=== PATIENT | female | born 1940 | race Caucasian/White ===

== ENCOUNTER 2016-12-17 11:33 | Emergency (ER) | payer MEDICARE, BC ==
[~2016-12-17] VITALS: Ht 160 cm; Wt 73.5 kg
[~2016-12-17 11:33] MED LIST changes: -IOHEXOL 300 MG/ML 75 ML VIAL. IV ONE
[2016-12-17] MEDS ORDERED: 0.9 % SODIUM CHLORIDE 10 ML DISP.SYRIN. IV ONE (12:00)
[2016-12-17 12:01] LABS: BASO # 0.1 x10^3/uL (0.0-0.2); BASO % 1 % (0-3); EOS # 0.1 x10^3/uL (0.0-0.7); EOS % 1 % (0-3); HEMATOCRIT 45.9 % (36.0-47.0); HEMOGLOBIN 15.4 g/dL (12.0-15.5); LYMPH # 1.4 x10^3/uL (1.0-4.8); LYMPH % 14 % (24-48); MEAN CORPUSCULAR HEMOGLOBIN 29 pg (25-35); MEAN CORPUSCULAR HGB CONC 34 g/dL (31-37); MEAN CORPUSCULAR VOLUME 85 fL (79-100); MONO # 0.6 x10^3/uL (0.0-1.1); MONO % 6 % (0-9); NEUT # 7.6 x10^3uL (1.8-7.7); NEUT % 78 % (31-73); PLATELET COUNT 250 x10^3/uL (140-400); RED BLOOD COUNT 5.41 x10^6/uL (3.50-5.40); RED CELL DISTRIBUTION WIDTH 14.5 % (11.5-14.5); WHITE BLOOD COUNT 9.7 x10^3/uL (4.0-11.0)
[2016-12-17 12:18] LABS: INFLUENZA A PATIENT NEGATIVE (NEGATIVE); INFLUENZA B PATIENT NEGATIVE (NEGATIVE)
[2016-12-17] MEDS ORDERED: HEPARIN 25,000UTS/500ML PREMIX 500 ML IV ONE ×2 (12:23→12:30)
--- NOTE | 2016-12-17 12:30 | PHYS DOC ---
General Chief Complaint: SHORTNESS OF BREATH Stated Complaint: SOA Time Seen by MD: 11:34 Source: patient, family Problems: History of Present Illness Initial Comments 75-year-old female patient complaining of fever and cough and congestion and productive cough for the last 10 days and states she was seen by her primary care physician and treated with Zithromax without improvement. Patient states the primary care physician ordered CT of chest that reported right atrium large clot with extension to inferior vena cava and sent to ER for evaluation. Patient denies chest pain, palpitation, focal neuro deficit, history of DVT and PE and recent extremity pain and tenderness. Allergies: Coded Allergies: Penicillins (Verified Allergy, Unknown, 12/17/16) codeine (Unverified Allergy, Unknown, 11/01/15) morphine (Unverified Allergy, Unknown, 11/01/15) Uncoded Allergies: AUGMINTIN (Allergy, Unknown, 11/01/15) CELECOR (Allergy, Unknown, 11/01/15) PENICILIN (Allergy, Unknown, 11/01/15) TRIGLICYRN (Allergy, Unknown, 11/01/15) Review of Systems Constitutional: see HPI EENTM: see HPI Respiratory: see HPI Cardiovascular: see HPI Gastrointestinal: see HPI Genitourinary: see HPI Musculoskeletal: see HPI Skin: see HPI Psychiatric/Neurological: see HPI Hematologic/Lymphatic: see HPI Immunological/Allergic: see HPI All Other Systems: Reviewed and Negative Physical Exam General Appearance: WD/WN, moderate distress Eyes: bilateral eye PERRL, bilateral eye normal inspection Ear, Nose, Throat: hearing grossly normal, normal ENT inspection, normal pharynx Neck: non-tender, full range of motion, supple Respiratory: chest non-tender, respiratory distress (mild), decreased breath sounds, accessory muscle use, wheezing Cardiovascular: normal peripheral pulses, regular rate, rhythm, no edema Gastrointestinal: normal bowel sounds, non tender, soft Back: normal inspection, no CVA tenderness, no vertebral tenderness Extremities: normal range of motion, non-tender, normal inspection, no pedal edema Neurologic/Psychiatric: no motor/sensory deficits, alert, normal mood/affect, oriented x 3 Skin: normal color, warm/dry Orders, Labs, Meds Evaluation of patient showed 75-year-old female patient presented because of the right atrial thrombosis. Cardiology rehabilitation services director at [facility] Dr Telles consulted at 1154 and recommended to send patient to [facility]. accepted the transfer to [facility] at 1216. Departure Departure: Disposition: 05 XFER OTHER (At 1216) Condition: GUARDED KURTIS OH MD Dec 17, 2016 12:30
[2016-12-17 12:33] LABS: ALBUMIN/GLOBULIN RATIO 1.3 (1.0-1.7); CALCIUM 9.6 mg/dL (8.5-10.1); GFR 54.2; POTASSIUM 3.8 mmol/L (3.5-5.1); TOTAL BILIRUBIN 0.6 mg/dL (0.2-1.0); TOTAL PROTEIN 7.2 g/dL (6.4-8.2)
[2016-12-17 12:42] VITALS: BP 180/77
--- NOTE | 2016-12-17 15:11 | EKG ---
[address] [address] Test Date: 2016-12-17 Test Time: 11:48:14 Pat Name: EMMA JER Department: Room: Gender: F Brancher: JER : 1940 Requested By: KURTIS OH Order Number: [id number] Reading MD: Measurements Intervals [place] Rate: 55 P: 45 [place]: 152 QRS: -7 QRSD: 78 T: 72 QT: 440 QTc: 423 Interpretive Statements SINUS RHYTHM LEFTWARD AXIS OTHERWISE NORMAL ECG RI6.01 Unconfirmed report No previous ECG available for comparison
== END 2016-12-17 12:57 | disposition short-term general hospital (02) ==
LOC: ER 11:33
DX: I51.3 Intracardiac thrombosis, not elsewhere classified (principal); Z88.0 Allergy status to penicillin; Z88.5 Allergy status to narcotic agent
CPT/HCPCS: 36415; 80053; 82553; 83880; 84484; 85027; 85379; 85610; 85730; 87040; 87804; 93005; 96365; 99285-25

== ENCOUNTER → 2016-12-17 | Outpatient (CLI) | payer MEDICARE, BC ==
[~2016-12-17] MED LIST: ALPR0.254 PO; FAMO10TA69 PO; GABA-585 PO; IOHEXOL 300 MG/ML 75 ML VIAL. IV ONE; LEVO25TA4 PO; SIMV5TAB5 PO
--- NOTE | 2016-12-17 11:35 | RAD ---
Examination: CT angiogram of the chest History: History of shortness of breath, coughing up blood Comparison: 23/06/2016 Technique: Axial CT angiographic images were performed with IV contrast. Coronal and sagittal 3-D MIP reformats are performed. PQRS Compliance Statement: One or more of the following individualized dose reduction techniques were utilized for this examination: 1. Automated exposure control 2. Adjustment of the mA and/or kV according to patient size 3. Use of iterative reconstruction technique Findings: The visualized thyroid gland grossly appears unremarkable. The central airways are patent. Mild cardiomegaly. No evidence of pleural effusion is identified There is no evidence of filling defect identified in the main pulmonary arterial trunk and right and left main pulmonary arteries and the visualized lobar, segmental branches of the pulmonary arteries There is a large filling defect identified in the right atrium extending likely extending into the inferior vena cava. Mild prominent appearing bilateral groundglass opacities identified in the lungs could be secondary to mild pulmonary edema or a patchy groundglass infiltrates The visualized liver, spleen, adrenals grossly appears unremarkable. Mild degenerative changes identified in the thoracic spine. Minimal superior endplate sclerosis identified at L1 vertebral level, nonspecific. Impression: 1.There is a large filling defect identified in the right atrium of the heart with possible extension into the inferior vena cava, suspicious for thrombus recommend echocardiogram and ultrasound of the bilateral lower extremities and the iliac veins and IVC for further evaluation. Other possibility includes flow mixing artifact. 2. No evidence of central pulmonary embolism. 3. Mild patchy diffuse groundglass airspace opacity identified in the bilateral lungs likely could be mild pulmonary edema or patchy glass infiltrates. Follow-up to resolution. Report will be called to ordering physician's office by the surgical technologist time of dictation.
== END | disposition home or self-care (01) ==
LOC: CT 10:49
PROVIDERS: ATTEND Nurse Practitioner Adult Health
DX: R06.02 Shortness of breath (principal); I10 Essential (primary) hypertension; Z86.69 Personal history of other diseases of the nervous system and sense organs; R05 Cough
CPT/HCPCS: 71275; Q9967

== ENCOUNTER → 2017-01-08 | Outpatient (CLI) | payer MEDICARE, BC ==
[2016-12-17 12:42] VITALS: BP 180/77
[2017-01-08 11:28] LABS: BASO # 0.1 x10^3/uL (0.0-0.2); BASO % 1 % (0-3); EOS # 0.3 x10^3/uL (0.0-0.7); EOS % 4 % (0-3); HEMATOCRIT 42.5 % (36.0-47.0); LYMPH # 1.5 x10^3/uL (1.0-4.8); LYMPH % 25 % (24-48); MEAN CORPUSCULAR HEMOGLOBIN 29 pg (25-35); MEAN CORPUSCULAR HGB CONC 33 g/dL (31-37); MEAN CORPUSCULAR VOLUME 87 fL (79-100); MONO # 0.4 x10^3/uL (0.0-1.1); MONO % 7 % (0-9); NEUT # 3.7 x10^3uL (1.8-7.7); NEUT % 62 % (31-73); PLATELET COUNT 209 x10^3/uL (140-400); RED BLOOD COUNT 4.87 x10^6/uL (3.50-5.40); RED CELL DISTRIBUTION WIDTH 15.9 % (11.5-14.5)
[2017-01-08 11:36] LABS: ALBUMIN 3.6 g/dL (3.4-5.0); ALBUMIN/GLOBULIN RATIO 1.2 (1.0-1.7); CALCIUM 9.6 mg/dL (8.5-10.1); CREATININE 1.1 mg/dL (0.6-1.0); GFR 48.4; POTASSIUM 4.6 mmol/L (3.5-5.1); TOTAL BILIRUBIN 0.5 mg/dL (0.2-1.0); TOTAL PROTEIN 6.7 g/dL (6.4-8.2)
--- NOTE | 2017-01-08 11:44 | RAD ---
Chest, 2 views, 01/08/2017: History: Persistent cough and shortness of breath The heart is at the upper limits of normal in size. There is calcific plaquing of the aorta. The pulmonary vascularity is normal. A calcified granuloma is present in the left lung. There is a minimal streaky opacity laterally in the left base. No pulmonary consolidation is seen. There is no evidence of pleural fluid. A left shoulder prosthesis is in place. IMPRESSION: 1. Borderline cardiomegaly and aortic atherosclerosis. 2. Minimal left basilar streaky atelectasis or scarring.
[2017-01-08 12:00] LABS: BGAS PH 7.42 (7.35-7.45)
== END | disposition home or self-care (01) ==
LOC: DXRAD 10:45
PROVIDERS: ATTEND Family Medicine
DX: I70.0 Atherosclerosis of aorta (principal); L90.5 Scar conditions and fibrosis of skin; J84.10 Pulmonary fibrosis, unspecified
CPT/HCPCS: 36415; 71020; 80053; 82803; 85027

== ENCOUNTER → 2017-03-16 | Outpatient (CLI) | payer MEDICARE, BC ==
--- NOTE | 2017-03-16 12:43 | RAD ---
CT scan of the head without contrast 03/16/2017 Clinical History: Left-sided headache for 5 days. Technique: Unenhanced, contiguous, 5 mm axial sections were obtained through the head. One or more of the following individualized dose reduction techniques were utilized for this study: 1. Automated exposure control. 2. Adjustment of the mA and/or kV according to patient size. 3. Use of iterative reconstruction technique. Findings: No previous studies are available for comparison. There is generalized parenchymal atrophy. Small scattered areas of decreased attenuation are seen within the periventricular and subcortical white matter of both cerebral hemispheres consistent with areas of small vessel ischemic disease. No acute parenchymal abnormality is seen. No extra-axial fluid collection is noted. No skull fracture is seen. Impression: No acute intracranial abnormality is seen.
== END | disposition home or self-care (01) ==
LOC: CT 12:04
PROVIDERS: ATTEND Physician Assistant
DX: R51 Headache (principal)
CPT/HCPCS: 70450

== ENCOUNTER 2017-03-17 11:59 | Emergency (ER) | payer MEDICARE, BC ==
[~2017-03-17] VITALS: Ht 160 cm; Wt 73.5 kg
[2017-03-17 12:43] LABS: BASO % 1 % (0-3); EOS # 0.1 x10^3/uL (0.0-0.7); EOS % 2 % (0-3); HEMATOCRIT 41.1 % (36.0-47.0); HEMOGLOBIN 14.1 g/dL (12.0-15.5); LYMPH # 1.5 x10^3/uL (1.0-4.8); LYMPH % 29 % (24-48); MEAN CORPUSCULAR HEMOGLOBIN 30 pg (25-35); MEAN CORPUSCULAR HGB CONC 34 g/dL (31-37); MEAN CORPUSCULAR VOLUME 86 fL (79-100); MONO # 0.4 x10^3/uL (0.0-1.1); MONO % 8 % (0-9); NEUT # 3.1 x10^3uL (1.8-7.7); NEUT % 60 % (31-73); PLATELET COUNT 211 x10^3/uL (140-400); RED BLOOD COUNT 4.76 x10^6/uL (3.50-5.40); WHITE BLOOD COUNT 5.2 x10^3/uL (4.0-11.0)
[2017-03-17 12:52] LABS: ALBUMIN 3.9 g/dL (3.4-5.0); ALBUMIN/GLOBULIN RATIO 1.3 (1.0-1.7); CALCIUM 9.4 mg/dL (8.5-10.1); CREATININE 0.8 mg/dL (0.6-1.0); GFR 69.9; POTASSIUM 5.1 mmol/L (3.5-5.1); TOTAL BILIRUBIN 0.8 mg/dL (0.2-1.0); TOTAL PROTEIN 6.9 g/dL (6.4-8.2)
--- NOTE | 2017-03-17 14:23 | EKG ---
[address] [address] Test Date: 2017-03-17 Test Time: 12:04:57 Pat Name: EMMA RANDLE Department: Room: Gender: F Colorman: GABRIEL : 1940 Requested By: MELINA IBRAHIM Order Number: [id number] Reading MD: Nba Telles Measurements Intervals [place] Rate: 48 P: 38 [place]: 154 QRS: -12 QRSD: 76 T: 26 QT: 434 QTc: 388 Interpretive Statements SINUS BRADYCARDIA Electronically Signed On 03-18-2017 11:07:01 CDT by Nba Telles
--- NOTE | 2017-03-17 14:54 | ED.ADGEN ---
Past History Past Medical History: CAD, High Cholesterol, Hypertension, Hypothyroid, Other Past Surgical History: Knee Replacement, Other Alcohol Use: None Drug Use: None Adult General Chief Complaint Chief Complaint Headache and chest pain HPI HPI Patient is a 76 year old female who presents with 5 day history of gradual onset headache it's mild to moderate posteriorly located no pain over the temples no blurry vision or difficulty speaking or swallowing no recent head trauma and I: Symptoms are worse with head movement with some elements of vertigo symptoms.. She's had 2 ED visits for evaluation of this problem with normal labs and CT head 2 that was negative. He was seen in the emergency department down the street prior to arrival here had a negative CT and labs when she got home she ended up having substernal chest discomfort on the left side did not radiate down the arm or neck mild to moderate in intensity lasted about 20 minutes and has since resolved now. She denies having chest pain workup within the last 10 years denies prior heart catheter and greater than 10 years of the stress test. Review of Systems Review of Systems Constitutional: Denies fever or chills [] Eyes: Denies change in visual acuity, redness, or eye pain [] HENT: Denies nasal congestion or sore throat [] Respiratory: Denies cough or shortness of breath [] Cardiovascular: No additional information not addressed in HPI [] GI: Denies abdominal pain, nausea, vomiting, bloody stools or diarrhea [] : Denies dysuria or hematuria [] Musculoskeletal: Denies back pain or joint pain [] Integument: Denies rash or skin lesions [] Neurologic: Denies headache, focal weakness or sensory changes [] Endocrine: Denies polyuria or polydipsia [] Allergies Allergies Allergies Coded Allergies Type Severity Reaction Last Updated Verified Penicillins Allergy Unknown 12/17/16 Yes codeine Allergy Unknown 11/01/15 No morphine Allergy Unknown 11/01/15 No Uncoded Allergies Type Severity Reaction Last Updated Verified AUGMINTIN Allergy Unknown 11/01/15 CELECOR Allergy Unknown 11/01/15 PENICILIN Allergy Unknown 11/01/15 TRIGLICYRN Allergy Unknown 11/01/15 Physical Exam Physical Exam Constitutional: Well developed, well nourished, no acute distress, non-toxic appearance. [] HENT: Normocephalic, atraumatic, bilateral external ears normal, oropharynx moist, no oral exudates, nose normal. [] Eyes: PERRLA, EOMI, conjunctiva normal, no discharge. No nystagmus [] Neck: Normal range of motion, no tenderness, supple, no stridor. [] Cardiovascular:Heart rate regular rhythm, no murmur [] Lungs & Thorax: Bilateral breath sounds clear to auscultation [] Abdomen: Bowel sounds normal, soft, no tenderness, no masses, no pulsatile masses. [] Skin: Warm, dry, no erythema, no rash. [] Back: No tenderness, no CVA tenderness. [] Extremities: No tenderness, no cyanosis, no clubbing, ROM intact, no edema. [] Neurologic: Alert and oriented X 3, normal motor function, normal sensory function, no focal deficits noted. [] Psychologic: Affect normal, judgement normal, mood normal. [] Current Patient Data Vital Signs Vital Signs Date Time Temp Pulse Resp B/P (MAP) Pulse Ox O2 Delivery O2 Flow Rate FiO2 03/17/17 12:00 97.6 45 20 97 Room Air Lab Results Laboratory Tests Test 03/17/17 12:15 White Blood Count 5.2 x10^3/uL (4.0-11.0) Red Blood Count 4.76 x10^6/uL (3.50-5.40) Hemoglobin 14.1 g/dL (12.0-15.5) Hematocrit 41.1 % (36.0-47.0) Mean Corpuscular Volume 86 fL (79-100) Mean Corpuscular Hemoglobin 30 pg (25-35) Mean Corpuscular Hemoglobin Concent 34 g/dL (31-37) Red Cell Distribution Width 14.0 % (11.5-14.5) Platelet Count 211 x10^3/uL (140-400) Neutrophils (%) (Auto) 60 % (31-73) Lymphocytes (%) (Auto) 29 % (24-48) Monocytes (%) (Auto) 8 % (0-9) Eosinophils (%) (Auto) 2 % (0-3) Basophils (%) (Auto) 1 % (0-3) Neutrophils # (Auto) 3.1 x10^3uL (1.8-7.7) Lymphocytes # (Auto) 1.5 x10^3/uL (1.0-4.8) Monocytes # (Auto) 0.4 x10^3/uL (0.0-1.1) Eosinophils # (Auto) 0.1 x10^3/uL (0.0-0.7) Basophils # (Auto) 0.0 x10^3/uL (0.0-0.2) Sodium Level 140 mmol/L (136-145) Potassium Level 5.1 mmol/L (3.5-5.1) Chloride Level 105 mmol/L (98-107) Carbon Dioxide Level 28 mmol/L (21-32) Anion Gap 7 (6-14) Blood Urea Nitrogen 9 mg/dL (7-20) Creatinine 0.8 mg/dL (0.6-1.0) Estimated GFR (Cockcroft-Gault) 69.9 BUN/Creatinine Ratio 11 (6-20) Glucose Level 111 mg/dL (70-99) H Calcium Level 9.4 mg/dL (8.5-10.1) Total Bilirubin 0.8 mg/dL (0.2-1.0) Aspartate Amino Transferase (AST) 21 U/L (15-37) Alanine Aminotransferase (ALT) 19 U/L (14-59) Alkaline Phosphatase 109 U/L (46-116) Troponin I Quantitative < 0.017 ng/mL (0-0.055) Total Protein 6.9 g/dL (6.4-8.2) Albumin 3.9 g/dL (3.4-5.0) Albumin/Globulin Ratio 1.3 (1.0-1.7) EKG EKG EKG sinus bradycardia rate of 48and slight T-wave inversion V1 through V3 but very subtle QTC normal interpreted by me at 1204 [] Radiology/Procedures Radiology/Procedures [] Course & Med Decision Making Course & Med Decision Making Pertinent Labs and Imaging studies reviewed. (See chart for details) Patient is not ill-appearing does not appear to have any meningismus so due to the protracted length and symptoms I recommended a lumbar puncture which she refused. In addition she probably would benefit from an MRI to evaluate the posterior circulation and brain at a closer level than the CT. Addition, patient will probably require some further cardiology evaluation. We' re unable to provide neurology and/or MRI services at [facility] therefore we will send [facility]. [] Final Impression Final Impression Intractable headache, chest pain [] Problems: Armand Disclaimer Dragon Disclaimer This electronic medical record was generated, in whole or in part, using a voice recognition dictation system. MELINA IBRAHIM MD Mar 17, 2017 14:54
[2017-03-17] MEDS ORDERED: HYDROmorphone PF 1 MG/ML DISP.SYRIN IV ONE (15:00)
[2017-03-17 16:15] VITALS: BP 112/58
== END 2017-03-17 16:27 | disposition short-term general hospital (02) ==
LOC: ER 11:59
DX: R51 Headache (principal); R07.89 Other chest pain; I25.10 Atherosclerotic heart disease of native coronary artery without angina pectoris; I10 Essential (primary) hypertension; E03.9 Hypothyroidism, unspecified; E78.00 Pure hypercholesterolemia, unspecified; Z88.0 Allergy status to penicillin; Z88.6 Allergy status to analgesic agent; Z88.5 Allergy status to narcotic agent
CPT/HCPCS: 36415; 80053; 84484; 85027; 93005; 96374; 99285; J1170

== ENCOUNTER → 2017-07-13 | Outpatient (CLI) | payer MEDICARE, BC ==
--- NOTE | 2017-07-13 10:56 | RAD ---
Indication screening for osteoporosis. The right hip and left forearm were evaluated. In the right hip the average bone mineral density is approximately 0.8 g/cc. The T score of -1.7 is indicative of osteopenia. In the left forearm the average bone mineral density is approximately 0.24 g/cc. The T score relative to the radius is -6 indicative of osteoporosis. IMPRESSION: Osteopenic right hip. Osteoporotic forearm
== END | disposition home or self-care (01) ==
LOC: DXRAD 10:07
PROVIDERS: ATTEND Family Medicine
DX: M81.0 Age-related osteoporosis without current pathological fracture (principal); M85.88 Other specified disorders of bone density and structure, other site
CPT/HCPCS: 77080

== ENCOUNTER 2020-08-22 17:53 | Emergency (ER) | payer MEDICARE, BC ==
[~2020-08-22] VITALS: Ht 160 cm; Wt 69.8 kg
[~2020-08-22 17:53] MED LIST changes: +SIMV5TAB14 PO; -SIMV5TAB5 PO
--- NOTE | 2020-08-22 18:25 | PHYS DOC ---
Past History Past Medical History: CAD, High Cholesterol, Hypertension, Hypothyroid, Other Past Surgical History: Knee Replacement, Other Alcohol Use: None Drug Use: None Adult General Chief Complaint Chief Complaint: FATIGUE HPI HPI Patient is a 79-year-old female presenting for fatigue. Patient reports testing positive for Covid 20 days ago. She is self quarantined at home and responded to supportive care practices with near complete resolution of symptoms. Nonetheless, patient admits approximately 4 days of worsening fatigue without any known inciting event, ingestion, or sick contact. Patient reports 48 hours of generalized nausea with a total of x5 episodes of nonbloody nonbilious emesis and a total of x4 loose stools which is unusual for her. She has been afebrile, no URI-like symptoms, no sick contacts, no COVID-19 contact, she is adamant she has remained within her household with her . She has not been able to see her primary care doctor since COVID-19 diagnosis 3 weeks ago. She consulted and discussed her case with her primary care physician who advised her to seek care at our ER today for evaluation and blood work for concern of dehydration given increased episodes of emesis and diarrhea. Patient denies no other changes in health, no recent antibiotic use, no changes in home medications Review of Systems Review of Systems Fourteen body systems of review of systems have been reviewed. See HPI for pertinent positives and negative responses, other ambrosio all other systems are negative, non-pertinent or non-contributory Allergies Allergies Allergies Coded Allergies Type Severity Reaction Last Updated Verified Penicillins Allergy Unknown 12/17/16 Yes amoxicillin Allergy Unknown 03/17/17 Yes clavulanic acid Allergy Unknown 03/17/17 Yes codeine Allergy Unknown 11/01/15 No morphine Allergy Unknown 11/01/15 No Uncoded Allergies Type Severity Reaction Last Updated Verified CELECOR Allergy Unknown 11/01/15 TRIGLICYRN Allergy Unknown 11/01/15 Physical Exam Physical Exam Constitutional: Well developed, well nourished, no acute distress, appears clin ically dehydrated, non-toxic appearance. HENT: Normocephalic, atraumatic, bilateral external ears normal, oropharynx dry, no oral exudates, nose normal. Eyes: PERRLA, EOMI, conjunctiva normal, no discharge. Neck: Normal range of motion, no tenderness, supple, no stridor. Cardiovascular: Heart rate regular, sinus rhythm, no murmurs rubs or gallops Lungs & Thorax: Bilateral breath sounds clear to auscultation Abdomen: Bowel sounds normal, soft, no tenderness, no masses, no pulsatile masses. Nonsurgical abdomen, no peritoneal signs Skin: Warm, dry, no erythema, no rash. Back: No tenderness, no CVA tenderness. Extremities: No tenderness, no cyanosis, no clubbing, ROM intact, no edema. Gait unremarkable. Neurologic: Alert and oriented X 3, grossly normal motor & sensory function, no focal deficits noted. Psychologic: Affect normal, judgement normal, mood normal. Current Patient Data Vital Signs Vital Signs Date Time Temp Pulse Resp B/P (MAP) Pulse Ox O2 Delivery O2 Flow Rate FiO2 08/22/20 18:15 97.8 61 18 155/75 (101) 94 Lab Results Laboratory Tests Test 08/22/20 18:40 White Blood Count 3.8 x10^3/uL (4.0-11.0) Red Blood Count 4.96 x10^6/uL (3.50-5.40) Hemoglobin 14.2 g/dL (12.0-15.5) Hematocrit 42.4 % (36.0-47.0) Mean Corpuscular Volume 86 fL (79-100) Mean Corpuscular Hemoglobin 29 pg (25-35) Mean Corpuscular Hemoglobin Concent 33 g/dL (31-37) Red Cell Distribution Width 14.0 % (11.5-14.5) Platelet Count 188 x10^3/uL (140-400) Neutrophils (%) (Auto) 75 % (31-73) Lymphocytes (%) (Auto) 16 % (24-48) Monocytes (%) (Auto) 8 % (0-9) Eosinophils (%) (Auto) 1 % (0-3) Basophils (%) (Auto) 0 % (0-3) Neutrophils # (Auto) 2.8 x10^3uL (1.8-7.7) Lymphocytes # (Auto) 0.6 x10^3/uL (1.0-4.8) Monocytes # (Auto) 0.3 x10^3/uL (0.0-1.1) Eosinophils # (Auto) 0.0 x10^3/uL (0.0-0.7) Basophils # (Auto) 0.0 x10^3/uL (0.0-0.2) Sodium Level 131 mmol/L (136-145) Potassium Level 3.4 mmol/L (3.5-5.1) Chloride Level 97 mmol/L (98-107) Carbon Dioxide Level 25 mmol/L (21-32) Anion Gap 9 (6-14) Blood Urea Nitrogen 10 mg/dL (7-20) Creatinine 0.9 mg/dL (0.6-1.0) Estimated GFR (Cockcroft-Gault) 60.6 BUN/Creatinine Ratio 11 (6-20) Glucose Level 105 mg/dL (70-99) Calcium Level 9.6 mg/dL (8.5-10.1) Total Bilirubin 0.5 mg/dL (0.2-1.0) Aspartate Amino Transf (AST/SGOT) 26 U/L (15-37) Alanine Aminotransferase (ALT/SGPT) 16 U/L (14-59) Alkaline Phosphatase 98 U/L (46-116) Troponin I Quantitative 0.022 ng/mL (0-0.055) Total Protein 6.7 g/dL (6.4-8.2) Albumin 3.0 g/dL (3.4-5.0) Albumin/Globulin Ratio 0.8 (1.0-1.7) Lipase 304 U/L (73-393) EKG EKG EKG ordered and interpreted by myself at 1703 hrs. as sinus rhythm at 57 bpm, unremarkable intervals, left axis deviation, no acute ischemic findings, no STEMI Radiology/Procedures Radiology/Procedures [] Heart Score HEART Score for Chest Pain: HEART Score for Chest Pain Response (Comments) Value History Slighlty/Non-Suspicious 0 ECG Normal 0 Age > 65 2 Risk Factors >3 Risk Factors or Hx CAD 2 Troponin < Normal Limit 0 Total 4 Risk Factors: Risk Factors: DM, Current or recent (<one month) smoker, HTN, HLP, family histo ry of CAD, obesity. Risk Scores: Risk Factors: DM, Current or recent (<one month) smoker, HTN, HLP, family history of CAD, obesity. Course & Med Decision Making Course & Med Decision Making Pertinent Labs and Imaging studies reviewed. (See chart for details) Discussed with patient most likely diagnosis of dehydration. Patient responded to 1 L IV fluid administered in ER. Remains asymptomatic, hemodynamically stable, afebrile, and ambulatory Patient reports she has good access to outpatient care with her PCP and can be seen in upcoming 7 days, I feel this is appropriate. She has as needed antiemetic at home for which she will start using as needed for nausea Although there were no emergent and/or surgical findings this visit, I did disclose this might be an acute presentation of more concerning pathology and thus, I reiterated importance of close outpatient follow-up. Patient understood this well Strict return precautions were discussed with good understanding by patient, all questions and concerns addressed prior to ER departure in stable condition Dragon Disclaimer Dragon Disclaimer This electronic medical record was generated, in whole or in part, using a voice recognition dictation system. Departure Departure: Impression: Primary Impression: Dehydration Additional Impression: Nausea vomiting and diarrhea Disposition: 01 DC HOME SELF CARE/HOMELESS Condition: IMPROVED Referrals: FREDDY KRAMER MD (PCP) Patient Instructions: Diet for Diarrhea, Adult, Nausea and Vomiting Additional Instructions: You have been evaluated in the Emergency Department today for dehydration. Your evaluation was not suggestive of any emergent condition requiring medical intervention at this time. However, some problems make take more time to appear. Therefore, it is important for you to watch for any new symptoms or worsening of your current condition. As discussed, please call your primary care physician tomorrow to schedule outpatient follow-up in upcoming 1 to 8 days time for repeat examination and to ensure symptomatic improvement Return to the Emergency Department if you experience worsening pain, persistent fevers greater than 100.4, recurrent vomiting, blood in vomit, blood in stool, dark tarry stool, chest pain, difficulty breathing, or any other concerning symptoms. Problem Qualifiers KYLE WEISS DO Aug 22, 2020 18:25
[2020-08-22] MEDS ORDERED: IV NORMAL SALINE 1,000ML 1,000 ML IV ONE (18:30)
[2020-08-22 19:11] LABS: BASO % 0 % (0-3); EOS % 1 % (0-3); HEMATOCRIT 42.4 % (36.0-47.0); HEMOGLOBIN 14.2 g/dL (12.0-15.5); LYMPH # 0.6 x10^3/uL (1.0-4.8); LYMPH % 16 % (24-48); MEAN CORPUSCULAR HEMOGLOBIN 29 pg (25-35); MEAN CORPUSCULAR HGB CONC 33 g/dL (31-37); MEAN CORPUSCULAR VOLUME 86 fL (79-100); MONO # 0.3 x10^3/uL (0.0-1.1); MONO % 8 % (0-9); NEUT # 2.8 x10^3uL (1.8-7.7); NEUT % 75 % (31-73); PLATELET COUNT 188 x10^3/uL (140-400); RED BLOOD COUNT 4.96 x10^6/uL (3.50-5.40); WHITE BLOOD COUNT 3.8 x10^3/uL (4.0-11.0)
[2020-08-22 19:16] LABS: CALCIUM 9.6 mg/dL (8.5-10.1); CREATININE 0.9 mg/dL (0.6-1.0); GFR 60.6; POTASSIUM 3.4 mmol/L (3.5-5.1)
[2020-08-22 19:21] LABS: ALBUMIN/GLOBULIN RATIO 0.8 (1.0-1.7); TOTAL BILIRUBIN 0.5 mg/dL (0.2-1.0); TOTAL PROTEIN 6.7 g/dL (6.4-8.2)
[2020-08-22 20:00] VITALS: BP 140/63
--- NOTE | 2020-08-23 09:03 | EKG ---
[address] [address] Test Date: 2020-08-22 Test Time: 18:59:24 Pat Name: EMMA RANDLE Department: Room: Gender: F Sign Installer: : 1940 Requested By: KYLE WEISS Order Number: [id number] Reading MD: Measurements Intervals [place] Rate: 57 P: 45 [place]: 156 QRS: -11 QRSD: 90 T: 43 QT: 462 QTc: 453 Interpretive Statements SINUS RHYTHM LEFTWARD AXIS OTHERWISE NORMAL ECG RI6.02 No previous ECG available for comparison
== END 2020-08-22 20:00 | disposition home or self-care (01) ==
LOC: ER 17:53
DX: E86.0 Dehydration (principal); R11.2 Nausea with vomiting, unspecified; R19.7 Diarrhea, unspecified; I25.10 Atherosclerotic heart disease of native coronary artery without angina pectoris; E78.00 Pure hypercholesterolemia, unspecified; I10 Essential (primary) hypertension; E03.9 Hypothyroidism, unspecified; Z88.0 Allergy status to penicillin; Z88.1 Allergy status to other antibiotic agents; Z88.5 Allergy status to narcotic agent
CPT/HCPCS: 36415; 80053; 83690; 84484; 85025; 93005; 96360; 99284; J7030

== ENCOUNTER 2021-05-18 12:01 | Emergency (ER) | payer MEDICARE, BC ==
[~2021-05-18] VITALS: Ht 162.6 cm; Wt 75.5 kg
[~2021-05-18 12:01] MED LIST changes: +FAMO-153 PO; -FAMO10TA69 PO
[2021-05-18] MEDS ORDERED: ONDANSETRON ODT 4 MG TAB.RAPDIS PO ONE (12:15)
--- NOTE | 2021-05-18 12:22 | PHYS DOC ---
Past History Past Medical History: CAD, High Cholesterol, Hypertension, Hypothyroid, Other Past Surgical History: Knee Replacement, Other Alcohol Use: None Drug Use: None General Adult EDM: Chief Complaint: GI PROBLEM HPI: HPI: 80-year-old female presents with nausea and vomiting. She believes it is due to a spider bite of the left wrist. She has been seen for this and is on an antibiotic which she takes twice a day. She is not sure which one it is. She is on her fourth day of antibiotic. This morning she took her medication without any food. She has been feeling nauseated and had an episode of vomiting. She denies fever or chills. She was just concerned that the medication she is on was not working. Review of Systems: Review of Systems: Constitutional: Denies fever or chills Eyes: Denies change in visual acuity HENT: Denies nasal congestion or sore throat Respiratory: Denies cough or shortness of breath Cardiovascular: Denies chest pain or edema GI: nausea, vomiting,. Denies abdominal pain, bloody stools or diarrhea : Denies dysuria Musculoskeletal: Denies back pain or joint pain Integument: spider bite Neurologic: Denies headache, focal weakness or sensory changes Endocrine: Denies polyuria or polydipsia Lymphatic: Denies swollen glands Psychiatric: Denies depression or anxiety Current Medications: Current Meds: Current Medications Medications (Trade) Dose Ordered Sig/Peng Start Time Stop Time Status Last Admin Dose Admin Ondansetron HCl (Zofran Odt) 4 mg 1X ONCE 05/18/21 12:15 05/18/21 12:16 Allergies: Allergies: Allergies Coded Allergies Type Severity Reaction Last Updated Verified Penicillins Allergy Unknown 12/17/16 Yes amoxicillin Allergy Unknown 03/17/17 Yes clavulanic acid Allergy Unknown 03/17/17 Yes codeine Allergy Unknown 11/01/15 No morphine Allergy Unknown 11/01/15 No Uncoded Allergies Type Severity Reaction Last Updated Verified CELECOR Allergy Unknown 11/01/15 TRIGLICYRN Allergy Unknown 11/01/15 Physical Exam: PE: Constitutional: Well developed, well nourished, no acute distress, non-toxic appearance. [] HENT: Normocephalic, atraumatic, bilateral external ears normal, oropharynx moist, no oral exudates, nose normal. [] Eyes: PERRLA, EOMI, conjunctiva normal, no discharge. [] Neck: Normal range of motion, no tenderness, supple, no stridor. [] Cardiovascular:Heart rate regular rhythm, no murmur [] Lungs & Thorax: Bilateral breath sounds clear to auscultation [] Abdomen: Bowel sounds normal, soft, no tenderness, no masses, no pulsatile masses. [] Skin: 1 cm raised nodule with central scabbing of the left wrist. No surrounding cellulitis, not warm to touch, no drainage. [] Back: No tenderness, no CVA tenderness. [] Extremities: No tenderness, no cyanosis, no clubbing, ROM intact, no edema. [] Neurologic: Alert and oriented X 3, normal motor function, normal sensory function, no focal deficits noted. [] Psychologic: Affect normal, judgement normal, mood normal. [] EKG: EKG: [] Radiology/Procedures: Radiology/Procedures: [] Heart Score: C/O Chest Pain: N/A Risk Factors: Risk Factors: DM, Current or recent (<one month) smoker, HTN, HLP, family history of CAD, obesity. Risk Scores: Score 0 - 3: 2.5% MACE over next 6 weeks - Discharge Home Score 4 - 6: 20.3% MACE over next 6 weeks - Admit for Clinical Observation Score 7 - 10: 72.7% MACE over next 6 weeks - Early Invasive Strategies Course & Med Decision Making: Course & Med Decision Making Pertinent Labs and Imaging studies reviewed. (See chart for details) The patient's wound looks appropriate at this time. I believe that her anti biotic is working for the infection. The skin will take some time to heal. We will give her Zofran ODT to see if this controls her nausea. Zofran has helped with her nausea. She is able to keep down fluids. She is stable for discharge at this time. I will discharge him her with Zofran. I also advised that she eat a little bit of food with her antibiotic. [] Armand Disclaimer: Armand Disclaimer: This electronic medical record was generated, in whole or in part, using a voice recognition dictation system. Departure Departure: Impression: Primary Impression: Nausea & vomiting Qualified Codes: R11.2 - Nausea with vomiting, unspecified Additional Impression: Spider bite wound Qualified Codes: T63.301A - Toxic effect of unspecified spider venom, accidental (unintentional), initial encounter Disposition: HOME / SELF CARE / HOMELESS Condition: STABLE Referrals: FREDDY KRAMER MD (PCP) Patient Instructions: Nausea and Vomiting, [id number] Scripts Ondansetron (ONDANSETRON ODT) 4 Mg Tab.rapdis 1 TAB PO PRN Q6-8HRS PRN for VOMITING, #16 TAB Prov: MAYITO DIAZ DO 05/18/21 MAYITO DIAZ DO May 18, 2021 12:22
[2021-05-18] MEDS ORDERED: ONDA4TAB12 PO (13:00)
[2021-05-18 13:10] VITALS: BP 114/61
== END 2021-05-18 13:20 | disposition home or self-care (01) ==
LOC: ER 12:01
DX: T63.301A Toxic effect of unspecified spider venom, accidental (unintentional), initial encounter (principal); R11.2 Nausea with vomiting, unspecified; I25.10 Atherosclerotic heart disease of native coronary artery without angina pectoris; E78.00 Pure hypercholesterolemia, unspecified; I10 Essential (primary) hypertension; E03.9 Hypothyroidism, unspecified; Z88.0 Allergy status to penicillin; Z88.1 Allergy status to other antibiotic agents; Z88.5 Allergy status to narcotic agent; Y92.89 Other specified places as the place of occurrence of the external cause
CPT/HCPCS: 99283; Q0162